=== PATIENT | female | born 1950 | race Caucasian/White ===

== ENCOUNTER 2016-06-26 15:49 | Outpatient (CLI) | END 2016-06-26 15:50 | disposition home or self-care (01) ==

== ENCOUNTER 2016-10-01 09:06 | Outpatient (CLI) | payer OTHER | END 2016-10-01 09:07 | disposition home or self-care (01) | DX: R73.9 Hyperglycemia, unspecified (principal) ==

== ENCOUNTER 2017-02-06 07:30 | Outpatient (CLI) | payer MEDICARE, OTHER ==
--- NOTE | 2017-02-06 11:17 | Ultrasound Report ---
COMPLETE ABDOMINAL ULTRASOUND: 02/06/2017 CLINICAL INDICATION: Pain. COMPARISON: 05/05/2010 TECHNIQUE: Real-time scanning was performed with floor representative static images obtained. FINDINGS: The liver measures 17.2 cm. Hepatic echogenicity is diffusely increased, compatible with fatty infiltration. Two cysts are noted, the larger measuring 2.9 cm, and the smaller measuring 1.8 cm. The common bile duct measures 10 mm. Cholelithiasis is noted. No gallbladder wall thickening o r pericholecystic fluid is seen. The visualized pancreas is unremarkable. The kidneys are normal, w ith the right measuring 10.8 cm, and the left measuring 11.5 cm. The spleen measures 11.1 cm, and de monstrates normal echotexture. The abdominal aorta is normal in caliber throughout. The inferior ve na cava is unremarkable. No free fluid is present. IMPRESSION: 1. CHOLELITHIASIS, WITHOUT EVIDENCE OF ACUTE CHOLECYSTITIS. 2. BILIARY DILATATION, WITH THE COMMON BILE DUCT MEASURING 10 MM. CONSIDER FURTHER EVALUATION WITH MRCP. 3. FATTY INFILTRATION OF THE LIVER, WITH TWO CYSTS IDENTIFIED. NO SOLID HEPATIC MASS IS SEEN. JOB #: [id number] EXT JOB #:[id number]
== END 2017-02-06 07:31 | disposition home or self-care (01) ==
LOC: DI 07:30
PROVIDERS: ATTEND Family Medicine
DX: K80.20 Calculus of gallbladder without cholecystitis without obstruction (principal); K83.8 Other specified diseases of biliary tract; K76.0 Fatty (change of) liver, not elsewhere classified; K76.89 Other specified diseases of liver
CPT/HCPCS: 76700

== ENCOUNTER 2017-02-12 12:22 | Outpatient (CLI) | payer MEDICARE ==
--- NOTE | 2017-02-12 15:11 | MRI Report ---
EXAM: MR ABDOMEN WITHOUT CONTRAST (MR CHOLANGIOPANCREATOGRAPHY) EXAM DATE: 02/12/2017 01:57 p.m. CLINICAL HISTORY: Abdominal pain, cholelithiasis, biliary dilation on CT. Right upper quadrant pain f or 2 months. Diffuse abdominal pain varies with diet. COMPARISON: Ultrasound from 02/06/2017. Abdominal radiograph from 05/05/2010. TECHNIQUE: Multiplanar breath-hold T1 and T2 sequences obtained through the abdomen on an MR scanner. Dedicated 2D and 3D MRCP sequences obtained through the biliary and pancreatic ducts. No intravenous contrast given. FINDINGS: Lung Bases: Lung bases are clear. Heart is enlarged. Small hiatal hernia. Liver: Decrease in signal intensity in the liver between the in and emq-xo-jcdeo images best seen on the olz-la-satja images consistent with fatty replacement. Low T1 and high T2 signal lesion is seen i n segment IVb measuring 2.8 x 2.4 cm and in segment 7/6 measuring 2.0 x 1.7 cm findings which favor c ysts. No other hepatic lesions. Mild prominence of the central intrahepatic bile ducts. CBD: The extrahepatic bile duct is prominent measuring in its midportion 9-10 mm, and inferiorly miihr uring 8-9 mm which tapers at the ampulla and may be slightly narrowed. No filling defect is identifie d. Gallbladder: There is a gallstone within the gallbladder which measures 15 mm. No gallbladder wall th ickening. Cholecystic edema. Pancreas: Pancreas is mildly atrophic with slight fatty replacement. The pancreatic duct measures 2.5 -3 mm in diameter by the pancreatic neck and body although the lower pancreatic duct near the conflue nce measures 3.5-4 mm. Spleen: The spleen appears normal. Kidneys and Adrenals: The kidneys appear normal with no mass or hydronephrosis. There are no cysts in the kidneys. The adrenals appear normal. Bowel: Stomach is mildly distended. Included portions of the small bowel are unremarkable. Are seen i n the colon. No diverticuli are seen in the colon. No diverticulitis. No enlarged mesenteric lymph no kirsten. Retroperitoneum: Abdominal aorta and IVC are of normal caliber. No aneurysm. No retroperitoneal jayla opathy. Mild degenerative changes in the lower thoracic and lumbar spine. IMPRESSION: 1. Mildly prominent common bile duct for patient's age. No MRI evidence of choledocholithiasis. Taper ing of the lower common bile duct near the ampulla with mild narrowing suggested at the confluence wi th the ampulla. Slight dilatation of the pancreatic duct adjacent to the confluence with the ampulla and common bile duct. Otherwise no other significant pancreatic ductal dilatation. Remainder of the p ancreatic duct is normal in caliber. 2. Cholelithiasis. 3. Diffuse fatty liver. Hepatic cysts. 4. Colonic diverticulosis. No diverticulitis. 5. Small hiatal hernia. [facility] Referring Provider Line: [phone] SITE ID: [id number]
== END 2017-02-12 12:23 | disposition home or self-care (01) ==
LOC: DI 12:22
PROVIDERS: ATTEND Family Medicine
DX: R10.9 Unspecified abdominal pain (principal); K80.20 Calculus of gallbladder without cholecystitis without obstruction; K83.8 Other specified diseases of biliary tract; K76.0 Fatty (change of) liver, not elsewhere classified; K76.89 Other specified diseases of liver; K57.30 Diverticulosis of large intestine without perforation or abscess without bleeding; K44.9 Diaphragmatic hernia without obstruction or gangrene
CPT/HCPCS: 74181

== ENCOUNTER 2017-02-25 10:10 | Outpatient (CLI) | payer MEDICARE ==
[2017-02-25 10:32] LABS: BASOPHILS % (AUTO) 0.4 %; EOSINOPHILS # (AUTO) 0.1 10^3/uL (0.0-0.7); EOSINOPHILS % (AUTO) 1.2 %; HCT - HEMATOCRIT 44.1 % (37.0-47.0); LYMPHOCYTES # (AUTO) 1.8 10^3/uL (1.5-3.5); LYMPHOCYTES % (AUTO) 22.8 %; MEAN CORPUSCULAR HEMOGLOBIN 30.9 pg (27.0-31.0); MEAN CORPUSCULAR HGB CONC 33.9 g/dL (32.0-36.0); MEAN CORPUSCULAR VOLUME 91.3 fL (81.0-99.0); MEAN PLATELET VOLUME 7.3 fL (7.9-10.8); MONOCYTES # (AUTO) 0.4 10^3/uL (0.0-1.0); MONOCYTES % (AUTO) 5.3 %; NEUTROPHILS # (AUTO) 5.5 10^3/uL (1.5-6.6); NEUTROPHILS % (AUTO) 70.3 %; RED BLOOD COUNT 4.83 10^6/uL (4.20-5.40); RED CELL DISTRIBUTION WIDTH 13.1 % (12.0-15.0); UNCORRECTED WHITE BLOOD COUNT 7.8 x10^3/uL; WHITE BLOOD COUNT 7.8 x10^3/uL (4.8-10.8)
[2017-02-25 11:09] LABS: BILIRUBIN,TOTAL 0.6 mg/dL (0.2-1.0); BUN - BLOOD UREA NITROGEN 11 mg/dL (6-20); CALCIUM 9.5 mg/dL (8.5-10.3); CARBON DIOXIDE - CO2 30 mmol/L (21-32); CHLORIDE 102 mmol/L (101-111); GFR - MDRD 56 (>89); GLUCOSE 119 mg/dL (70-100); LIPASE 30 U/L (22-51); POTASSIUM 4.1 mmol/L (3.5-5.0); SODIUM 140 mmol/L (135-145); TOTAL PROTEIN 7.1 g/dL (6.7-8.2)
[2017-02-25 11:10] LABS: BILIRUBIN,DIRECT < 0.1 mg/dL (0.1-0.5)
[2017-02-25] MEDS ORDERED: SINCALIDE 1.7 MCG in SODIUM CHLORIDE 0.9% 50 ML IV ONE (12:00)
--- NOTE | 2017-02-25 15:59 | Nuclear Medicine Report ---
EXAM: HEPATOBILIARY SCAN WITH CCK/KINEVAC ADMINISTRATION EXAM DATE: 02/25/2017 11:24 AM. CLINICAL HISTORY: Cholelithiasis. Question of cholecystitis. COMPARISON: Prior ultrasound and MRCP. TECHNIQUE: Following the intravenous administration of 5.3 mCi of Tc99m Mebrofenin, a hepatobiliary s can was done centered on the liver and gallbladder in multiple sequential images and projections. Following the intravenous administration of 1.3 mcg of CCK/ Kinevac over the course of approximately 60 minutes, dynamic imaging was done and the gallbladder ejection fraction was calculated. FINDINGS: Normal extraction of tracer from the blood pool indicating normal hepatocellular function. The liver size and shape is grossly within normal limits. Appearance of tracer in the biliary tree as early as 10 minutes, within normal limits. Appearance of tracer in the gallbladder as early as 15 minutes, within normal limits, with good progr ession of filling throughout the remainder of the initial hour. Appearance of tracer in the small bowel as early as 20 minutes, within normal limits. With CCK administration, the gallbladder demonstrates an effective contraction. The gallbladder eject ion fraction is calculated to be 29%, well below the lower limit of normal of 38% for a 60-minute inj ection. Patient experienced mild discomfort in the abdomen 8 minutes into the CCK infusion. IMPRESSION: 1. Patent cystic duct. 2. Patent common bile duct. 3. Gallbladder ejection fraction 29%. The findings suggest chronic cholecystitis. [facility] Referring Provider Line: [phone] SITE ID: [id number]
== END 2017-02-25 10:11 | disposition home or self-care (01) ==
LOC: DI 10:10
PROVIDERS: ATTEND Surgery
DX: K80.20 Calculus of gallbladder without cholecystitis without obstruction (principal)
CPT/HCPCS: 36415; 78227; 80048; 80076; 83690; 85025; A9537; J7040

== ENCOUNTER 2017-02-28 14:03 | Day surgery (SDC) | payer MEDICARE, OTHER ==
[2017-02-28] MEDS ORDERED: ONDANSETRON 4 MG/2 ML VIAL IVP STA (14:33)
[2017-02-28] MEDS ORDERED: HYDROmorphone 1 MG/ML CARPUJECT IVP STA ×2 (14:33→17:47)
--- NOTE | 2017-02-28 14:37 | ED Physician Documentation ---
PD HPI ABD PAIN - Stated complaint Stated Complaint: ABD PX - Chief complaint Chief Complaint: Abd Pain - History obtained from History obtained from: Patient, Family - History of Present Illness Timing - onset: Other (Recent diagnosis of gallstones, she had a dilated common bile duct on ultrasound and this was followed by an MRCP and then a HIDA scan showing chronic cholecystitis. The gallstone pain was far right lateral, over the last 3 days she has had progressive and severe epigastric pain that is nonradiating. She had a normal bowel movement this morning. Only abdominal surgery and her past was a vaginal hysterectomy.) Review of Systems Ten Systems: 10 systems reviewed and negative Constitutional: denies: Fever, Chills Throat: denies: Dental pain / toothache, Sore throat Cardiac: denies: Chest pain / pressure, Palpitations, Pedal edema, Calf pain Respiratory: denies: Dyspnea, Cough, Hemoptysis, Wheezing PD PAST MEDICAL HISTORY - Past Medical History Past Medical History: Yes Cardiovascular: Hypertension, High cholesterol Respiratory: None Endocrine/Autoimmune: None GI: None : None HEENT: None Psych: Depression, Anxiety, Claustrophobia Musculoskeletal: Osteoarthritis Derm: None - Past Surgical History General: Colonoscopy, EGD /[employer]ES [employer]PRESENTATIVE: Hysterectomy, Oophrectomy - Present Medications Home Medications: Ambulatory Orders Medication Instructions Recorded Confirmed Amitriptyline [Elavil] 10 mg ORAL DAILY 04/03/14 04/03/14 Amlodipine/Valsartan/Hcthiazid 10 mg ORAL DAILY 04/03/14 04/03/14 [Exforge Hct 10-160-12.5 mg Tab] FLUoxetine [PROzac] 20 mg ORAL DAILY 04/03/14 04/03/14 Losartan [Cozaar] 100 mg ORAL DAILY 04/03/14 04/03/14 - Allergies Allergies/Adverse Reactions: Allergies Allergy/AdvReac Type Severity Reaction Status Date / Time No Known Drug Allergies Allergy Verified 02/28/17 14:13 - Social History Does the pt smoke?: No Smoking Status: Never smoker - Family History Family history: reports: Non contributory PD ED PE NORMAL - Vitals Vital signs reviewed: Yes - General General: Alert and oriented X 3, Other (Tearful, in pain) - HEENT HEENT: PERRL, EOMI - Neck Neck: Supple, no meningeal sign, No bony TTP - Cardiac Cardiac: RRR, No murmur - Respiratory Respiratory: No respiratory distress, Clear bilaterally - Abdomen Abdomen: Other (Normal bowel sounds, mild epigastric tenderness, no guarding or rebound.) - Back Back: No CVA TTP, No spinal TTP - Derm Derm: Normal color, Warm and dry - Extremities Extremities: No edema, No calf tenderness / cord - Neuro Neuro: Alert and oriented X 3, Normal speech - Psych Psych: Normal mood, Normal affect Results - Vitals Vitals: Vital Signs - 24 hr 02/28/17 02/28/17 14:11 15:44 Temperature 36.7 C Heart Rate 93 73 Respiratory 16 18 Rate Blood Pressure 124/78 138/68 H O2 Saturation 100 97 Oxygen O2 Source Room air - EKG (time done) 1443 Rate: Rate (enter#) (93) Rhythm: NSR [place]: Normal Intervals: Normal LA QRS: Normal Ischemia: Other (mild inferior flat twaves). No: ST elevation c/w ischemia Computer interpretation: Agree with computer - Labs Labs: Laboratory Tests 02/28/17 02/28/17 02/28/17 14:27 14:43 14:43 WBC 7.8 RBC 4.87 Hgb 15.1 Hct 44.4 MCV 91.1 MCH 30.9 MCHC 33.9 RDW 13.0 Plt Count 222 MPV 7.2 L Neut # 5.3 Lymph # 1.8 [place] # 0.6 Eos # 0.1 Baso # 0.0 Absolute Nucleated RBC 0.00 Nucleated RBCs 0.0 Sodium 141 Potassium 3.9 Chloride 101 Carbon Dioxide 30 Anion Gap 10.0 BUN 10 Creatinine 1.0 Estimated GFR (MDRD) 56 L Glucose 102 H Calcium 9.7 Total Bilirubin 0.4 AST 22 ALT 20 Alkaline Phosphatase 87 Troponin I Total Protein 7.9 Albumin 4.6 Globulin 3.3 Albumin/Globulin Ratio 1.4 Lipase 28 Urine Color LIGHT YELLOW Urine Clarity CLEAR Urine pH 7.0 Ur Specific Fenton <=1.005 Urine Protein NEGATIVE Urine Glucose (UA) NEGATIVE Urine Ketones NEGATIVE Urine Occult Blood NEGATIVE Urine Nitrite NEGATIVE Urine Bilirubin NEGATIVE Urine Urobilinogen 0.2 (NORMAL) Ur Leukocyte Esterase NEGATIVE Ur Microscopic Review NOT INDICATED Urine Culture Comments NOT INDICATED 02/28/17 14:43 WBC RBC Hgb Hct MCV MCH MCHC RDW Plt Count MPV Neut # Lymph # [place] # Eos # Baso # Absolute Nucleated RBC Nucleated RBCs Sodium Potassium Chloride Carbon Dioxide Anion Gap BUN Creatinine Estimated GFR (MDRD) Glucose Calcium Total Bilirubin AST ALT Alkaline Phosphatase Troponin I < 0.04 Total Protein Albumin Globulin Albumin/Globulin Ratio Lipase Urine Color Urine Clarity Urine pH Ur Specific Fenton Urine Protein Urine Glucose (UA) Urine Ketones Urine Occult Blood Urine Nitrite Urine Bilirubin Urine Urobilinogen Ur Leukocyte Esterase Ur Microscopic Review Urine Culture Comments - Rads (name of study) CT A/P Radiology: EMP read contemporaneously (Diverticulosis without diverticulitis, small hiatal hernia, common ductal dilatation, similar to MRCP from last month.) PD MEDICAL DECISION MAKING - ED course ED course: 66-year-old woman presents with epigastric pain, likely biliary in origin given her recent history and imaging. Pain was controlled by single dose of Dilaudid , EKG/troponin negative. She was eager to get her gallbladder out and I spoke with Dr. Quinonez who is in the OR at 4:30 PM and he will be down after his case. Departure - Departure Disposition: ED Transfer to [facility] Clinical Impression: Cholecystitis Condition: Stable
[2017-02-28 14:38] LABS: BILIRUBIN,URINE NEGATIVE (NEGATIVE)
[2017-02-28 14:40] LABS: UA CHARGE (STRIP ONLY) YES; UR CULTURE IF IND NOT INDICATED
[2017-02-28 14:50] LABS: BASOPHILS % (AUTO) 0.4 %; EOSINOPHILS # (AUTO) 0.1 10^3/uL (0.0-0.7); EOSINOPHILS % (AUTO) 1.7 %; HCT - HEMATOCRIT 44.4 % (37.0-47.0); HGB - HEMOGLOBIN 15.1 g/dL (12.0-16.0); LYMPHOCYTES # (AUTO) 1.8 10^3/uL (1.5-3.5); LYMPHOCYTES % (AUTO) 23.4 %; MEAN CORPUSCULAR HEMOGLOBIN 30.9 pg (27.0-31.0); MEAN CORPUSCULAR HGB CONC 33.9 g/dL (32.0-36.0); MEAN CORPUSCULAR VOLUME 91.1 fL (81.0-99.0); MEAN PLATELET VOLUME 7.2 fL (7.9-10.8); MONOCYTES # (AUTO) 0.6 10^3/uL (0.0-1.0); MONOCYTES % (AUTO) 7.1 %; NEUTROPHILS # (AUTO) 5.3 10^3/uL (1.5-6.6); NEUTROPHILS % (AUTO) 67.4 %; RED BLOOD COUNT 4.87 10^6/uL (4.20-5.40); UNCORRECTED WHITE BLOOD COUNT 7.8 x10^3/uL; WHITE BLOOD COUNT 7.8 x10^3/uL (4.8-10.8)
[2017-02-28] MEDS ORDERED: HYDROmorphone 1 MG/ML CARPUJECT ONE ×2 (14:52→18:01)
[2017-02-28] MEDS ORDERED: ONDANSETRON 4 MG/2 ML VIAL ONE (14:52)
[2017-02-28 15:02] LABS: ALBUMIN/GLOBULIN RATIO 1.4 (1.0-2.2); BILIRUBIN,TOTAL 0.4 mg/dL (0.2-1.0); CALCIUM 9.7 mg/dL (8.5-10.3); POTASSIUM 3.9 mmol/L (3.5-5.0); TOTAL PROTEIN 7.9 g/dL (6.7-8.2)
[2017-02-28] MEDS ORDERED: IOPAMIDOL-300 100 ML VIAL IVP ONE (15:37)
--- NOTE | 2017-02-28 16:08 | CT Preliminary Report ---
Exam: CT Abdomen/Pelvis W/ IMPRESSION: 1. Colonic diverticulosis without annalee diverticulitis. 2. Small hiatal hernia. 3. Mild dilatation of the common duct as well as mild prominence of the distal pancreatic duct althou gh similar to the MRCP from last month. [facility] SITE ID: [id number]
--- NOTE | 2017-02-28 16:11 | CT Report ---
EXAM: CT ABDOMEN AND PELVIS EXAM DATE: 02/28/2017 03:38 PM. CLINICAL HISTORY: Upper abdominal pain COMPARISONS: MRCP 02/12/2017. TECHNIQUE: Routine helical CT imaging was performed through the abdomen and pelvis. IV contrast: 100 cc Isovue-300. Enteric contrast: No. Reconstructions: Coronal and sagittal. In accordance with CT protocol optimization, one or more of the following dose reduction techniques w ere utilized for this exam: automated exposure control, adjustment of mA and/or KV based on patient s ize, or use of iterative reconstructive technique. FINDINGS: Lung Bases: Trace pericardial fluid. Minimal basilar diskoid atelectasis. Small hiatal hernia. Liver: Normal in contour with hepatic cysts, largest measuring 2.2 cm. Gallbladder/Bile Ducts: Gallbladder is unremarkable. Mild extrahepatic biliary dilatation redemonstra meena without discrete lesion. Spleen: Normal. Pancreas: Borderline prominence distal pancreatic duct without discrete pancreatic lesion. Adrenal Glands: Normal. Kidneys: Normal. No masses or hydronephrosis. Peritoneal Cavity/Bowel: There is a small hiatal hernia. Remainder of the stomach is unremarkable. No dilated loops of large or small intestine. Moderate colonic diverticular disease without focal infla mmation. Appendix unremarkable. Pelvic Organs: Bladder is unremarkable. Patient status post hysterectomy. Vasculature: Atherosclerosis without abdominal aortic aneurysm. Bones: Old compression fracture L2. Other: None. IMPRESSION: 1. Colonic diverticulosis without annalee diverticulitis. 2. Small hiatal hernia. 3. Mild dilatation of the common duct as well as mild prominence of the distal pancreatic duct althou gh similar to the MRCP from last month. [facility] Referring Provider Line: [phone] SITE ID: [id number]
[2017-02-28] MEDS ORDERED: AMPICILLIN/SULBACTAM 3 GM in SODIUM CHLORIDE 0.9% MINIBAG 100 ML IV STA (16:29)
[2017-02-28 17:47] VITALS: BP 133/73
[2017-02-28] MEDS ORDERED: LACTATED RINGERS 1,000 ML IV ONE ×2 (19:38→20:33)
[2017-02-28] MEDS ORDERED: BUPIVACAINE 0.5% PF 30 ML VIAL SUBQ ONE ×2 (20:03→20:31)
[2017-02-28] MEDS ORDERED: ONDANSETRON 4 MG/2 ML VIAL IVP ONE (20:25)
[2017-02-28] MEDS ORDERED: SUCCINYLCHOLINE 200 MG/10 ML VIAL IVP ONE (20:25)
[2017-02-28] MEDS ORDERED: ACETAMINOPHEN 1,000 MG/100 ML 100 ML IV ONE (20:25)
[2017-02-28] MEDS ORDERED: LIDOCAINE-MPF 2% 5 ML VIAL IM ONE (20:25)
[2017-02-28] MEDS ORDERED: ceFAZolin 1 GM VIAL IV ONE (20:25)
[2017-02-28] MEDS ORDERED: MIDAZOLAM 2 MG/2 ML VIAL IVP ONE (20:25)
[2017-02-28] MEDS ORDERED: PROPOFOL 200 MG/20 ML VIAL IVP ONE (20:25)
[2017-02-28] MEDS ORDERED: fentaNYL 100 MCG/2 ML VIAL IVP ONE (20:25)
[2017-02-28] MEDS ORDERED: GLYCOPYRROLATE 1 MG/5 ML VIAL IVP ONE (20:25)
[2017-02-28] MEDS ORDERED: ePHEDrine 50 MG/ML VIAL IVP ONE (20:25)
[2017-02-28] MEDS ORDERED: NEOSTIGMINE 1 MG/1 ML 10 ML MDV IVP ONE (20:25)
[2017-02-28] MEDS ORDERED: DEXAMETHASONE 4 MG/ML VIAL IVP ONE (20:25)
--- NOTE | 2017-02-28 21:18 | OPERATIVE REPORT ---
Operative Report - General Procedure Date: 02/28/17 Planned Procedure: Laparoscopic cholecystectomy, possible IOC, possible common bile duct explo Pre-Op Diagnosis: Acalculus cholecystitis Procedure Performed: Laparoscopic cholecystectomy Post Op Diagnosis: Same - Procedure Note Primary Surgeon: Donavan Quinonez MD Anesthesia Provider: Justin Oconnell Anesthesia Technique: General ET tube, Local (30 mL 1/2% Marcaine) IV Fluids (mL): 1,300 Estimated Blood Loss (mL): 5 Complications: None. - Other Other Information/Narrative: OPERATIVE DESCRIPTION/REPORT: After verbal and written informed consent was obtained detailing the risks of infection, bleeding with all of its risks including transfusion, common bile duct injury, and the patient was brought to the operative suite and placed in the supine position on the operating room table. Monitoring devices were applied along with TEDs and pneumatic compressive stockings. Care was taken to avoid pressure points. Prophylactic antibiotics were given. An adequate level of general endotracheal anesthesia was established by Justin Oconnell. The abdomen was then prepped with ChloraPrep and draped in a sterile fashion. A "time in" then confirmed that the patient was identified with 3 identifiers (name, birthdate and medical record number), the history and physical was in the chart, the signed consent confirming the procedure was in the chart, the patient was in the correct position, the aforementioned prophylactic measures were in place or given, we had the correct personnel and equipment to complete the procedure and that anesthesia, surgery and nursing were given an opportunity to express any concerns. The initial incision was at the umbilicus and dissection to the linea alba was completed using blunt dissection. The linea alba was grasped with a Misty and incised. In a similar manner the peritoneum was grasped and incised using Metzenbaum scissors. In this location, a 12 mm blunt tipped, balloon tipped port was placed and the balloon was inflated to keep the port in position. The abdominal cavity was insufflated with carbon dioxide to steady-state pressure of 15 mmHg. Three additional 5 mm ports were placed in standard location for laparoscopic cholecystectomy (subxiphoid and 2 right subcostal) under direct vision of the 30 degree laparoscope and without incident. The patient was then placed in reverse Trendelenburg position and was rotated slightly to their left. The gallbladder fundus was grasped with an atraumatic grasper. Multiple adhesions had to be taken down by blunt and sharp dissection along with electrocautery. Eventually, we identified the infundibulum, and this was then grasped and retracted inferior and laterally. Dissection was then begun in the angle of Calot. The cystic duct and (slightly medially and posteriorly) cystic artery were clearly identified. The critical view was obtained. Two clips proximally and one clip distally were used to control both the cystic duct and cystic artery. The clips were carefully placed to avoid occluding the juncture with the common bile duct. Both the cystic duct and then the cystic artery were then transected with laparoscopic jose angel. The gallbladder was then removed from its fossa in a retrograde fashion using electrocautery. With the 30 degree 5 mm scope in the subxiphoid position, the gallbladder was placed in an EndoCatch bag to be extracted through the 12 mm port site. I irrigated the right upper quadrant with a liter of warm sterile saline, and the area was aspirated dry. I inspected the gallbladder fossa and there was no bleeding or bile leak. Clips on the cystic duct and cystic artery appeared to be secure. I briefly visually explored the abdomen. There was no other evidence of overt pathology. I injected the port sites at the peritoneal, fascial, and skin levels under direct vision with 0.5% Marcaine. All ports and the EndoCatch containing the gallbladder were removed. Following gallbladder removal, the remaining carbon dioxide was expelled from the abdomen. The fascia at the umbilicus was re-approximated using 2 [id number] 0 Vicryl sutures. The skin at each port site was approximated using a subcuticular 4-0 Monocryl. The surgical count of instruments, needles and sponges was reported as correct twice. Mastisol, Steri-Strips and sterile surgical dressings were applied. The patient was then awakened from anesthesia , extubated, and having tolerated the procedure well, was transported to the recovery room. No complications were encountered. A "time out" confirmed the operation performed, the fluids given, the estimated blood loss and anesthesia, surgery and nursing were given an opportunity to express any concerns.
--- NOTE | 2017-02-28 22:06 | HISTORY & PHYSICAL EXAMINATION ---
DATE OF ADMISSION: 02/28/2017 REQUESTING PROVIDER: Carl Smith MD. I am called on consultation by Dr. Carl Smith to evaluate this very pleasant 66-year-old female for acalculous cholecystitis. The patient was scheduled to see Dr. Mcelroy and had seen Dr. Mcelroy and was in the process of a w orkup for her acalculous cholecystitis, including an MRCP and HIDA scan showing chronic cholecystitis . The pain has been persistent over weeks and even months, and it is located in the right upper quadr ant following eating. Today, it got to the point where she could no longer take it and came to the em ergency department. There is no significant contribution to nausea and vomiting or constipation or di arrhea. There is no hematemesis, melena or hematochezia. ALLERGIES: NONE. MEDICATIONS 1. Elavil 10 mg orally daily. 2. Exforge HCT 10/160/12.5 mg tablet 10 mg daily. 3. Prozac 20 mg daily. 4. Losartan 100 mg p.o. daily. SOCIAL HISTORY: Tobacco, none. Recreational drug use, none. PAST MEDICAL AND SURGICAL HISTORY 1. Hypertension. 2. Dyslipidemia. 3. Depression. 4. Anxiety. 5. Claustrophobia. 6. Osteoarthritis. 7. Colonoscopy (performed by me). 8. EGD. 9. Hysterectomy, oophorectomy. REVIEW OF SYSTEMS CONSTITUTIONAL: She denies fever or chills. She has had weight loss with the diet she has been eating to avoid abdominal pain. (She has been eating fruits and oatmeal and has lost, I believe, 7 to 11 po unds.) HEENT: She denies any decrease in her hearing or vision. NECK: She denies any difficulty swallowing or speaking. CHEST: She denies any shortness of breath or productive cough. CARDIAC: She denies any chest pain or pressure. ABDOMEN: Please see above. : She denies dysuria. EXTREMITIES: Positive for some osteoarthritis. PSYCHIATRIC: Positive for some depression/anxiety, as well as some claustrophobia. PHYSICAL EXAMINATION GENERAL: This is a 66-year-old female, evaluated in room 5 at [facility]. She is evaluated with her in the room. She appears younger than her stated age . She is well-developed and well-nourished and is in no acute distress. Her mood and affect are appro priate. She asks and answers questions appropriately. VITAL SIGNS: Please refer to nurse's note. HEENT: She is normocephalic, atraumatic. Sclerae are noninjected, nonicteric. Mucous membranes are pi nk and slightly dry. NECK: Supple without mass or bruits. HEART: Regular rate and rhythm without rub, murmur or gallop. LUNGS: Clear to auscultation bilaterally anterolaterally. ABDOMEN: Slightly tender in the right upper quadrant. No peritoneal findings. Bowel sounds are normal . No palpable hepatosplenomegaly. No palpable umbilical hernia. : Deferred. RECTAL: Deferred. EXTREMITIES: No clubbing, cyanosis, or edema. GAIT: Not evaluated. PSYCHIATRIC: Again, her mood and affect appear appropriate. She asks and answers questions well. Ther e is no inappropriateness to her questions or her answers. NEUROLOGIC: She has no localizing or focused signs. The abdominopelvic CT read by Dr. Bailey is read as chronic diverticulosis without annalee diverticul itis, small hiatal hernia, mild dilatation of the common bile duct, as well as mild prominence of the distal pancreatic duct, although similar to the MRCP from last month. LABORATORY VALUES: Abnormalities on her chemistry include a GFR of 56 and a glucose of 102. On her he matology, the only abnormality is an MPV of 7.2. Her urinalysis is entirely normal. On a separate evaluation on February 25, 2017, the patient had a HIDA scan which revealed a patent cy stic duct, patent common bile duct, and a gallbladder ejection fraction of 29% with the findings sugg esting chronic cholecystitis. ASSESSMENT: A 66-year-old female with acute exacerbation of her chronic acalculous cholecystitis. PLAN: Laparoscopic cholecystectomy, possible open cholecystectomy, possible intraoperative cholangiog cristhian, possible common bile duct exploration. The indications, procedure, alternatives and possible c omplications, including but not limited to infection, bleeding with all of its risks, common bile pako t injury, and were fully explained to the patient. All questions were answered. Verbal and writ ten consent was obtained. The patient in preparation for this will be maintained n.p.o. and will rece nenita preoperative antibiotics for prophylaxis against surgical infection. In addition, she will have T EDs and Venodynes placed for prophylaxis against deep venous thrombosis. I have asked her to let us k now if there is any way we can make her stay here at [facility] more comfortable, to please let us know. Please note that this entire conversation was held in front of her , Karthikeyan duval. Approximately 45 minutes of [id number]-zk-[id number] time was spent with the patient with the majority of it in discussion, as well as in the generation of this document. JOB #: [id number] EXT JOB #:[id number]
[2017-03-01] MEDS ORDERED: ONDANSETRON 4 MG/2 ML VIAL IVP PRN (00:02)
[2017-03-01] MEDS ORDERED: HYDROcod/ACETAM 10 MG/325 MG TABLET PO PRN (00:02)
[2017-03-01] MEDS ORDERED: KETOROLAC 15 MG/ML VIAL IVP PRN (00:03)
[2017-03-01] MEDS ORDERED: HYDROmorphone 1 MG/ML CARPUJECT IVP PRN (00:04)
[2017-03-01] MEDS ORDERED: LACTATED RINGERS 1,000 ML IV SCH (04:00)
--- NOTE | 2017-03-01 13:11 | PROVIDER PROGRESS NOTE ---
Subjective - General Procedure Date: 02/28/17 Post Op Days: 1 - Review of Systems Wound/Incisions: positive: Healing well General: positive: No symptoms (Ever so mild nausea.) HEENT: positive: No symptoms Pulmonary: positive: No symptoms Cardiovascular: positive: No symptoms Gastrointestinal: positive: No symptoms, Nausea (Very mild.) Genitourinary: positive: No symptoms Musculoskeletal: positive: No symptoms Skin: positive: No symptoms Psychiatric: positive: No symptoms Objective - Patient Data Reviewed Vital Signs: Yes Weight: Weight 02/27/17 02/28/17 03/01/17 23:59 23:59 23:59 Weight (kg) 65.771 kg - Lab Results Lab Results: 02/28/17 14:43 02/28/17 14:43 Other Lab Results: Lab Results x24hrs 02/28/17 02/28/17 02/28/17 Range/Units 14:43 14:43 14:43 WBC 7.8 (4.8-10.8) x10^3/uL RBC 4.87 (4.20-5.40) 10^6/uL Hgb 15.1 (12.0-16.0) g/dL Hct 44.4 (37.0-47.0) % MCV 91.1 (81.0-99.0) fL MCH 30.9 (27.0-31.0) pg MCHC 33.9 (32.0-36.0) g/dL RDW 13.0 (12.0-15.0) % Plt Count 222 (130-450) 10^3/uL MPV 7.2 L (7.9-10.8) fL Neut # 5.3 (1.5-6.6) 10^3/uL Lymph # 1.8 (1.5-3.5) 10^3/uL [place] # 0.6 (0.0-1.0) 10^3/uL Eos # 0.1 (0.0-0.7) 10^3/uL Baso # 0.0 (0.0-0.1) 10^3/uL Absolute Nucleated RBC 0.00 x10^3/uL Nucleated RBCs 0.0 /100WBC Sodium 141 (135-145) mmol/L Potassium 3.9 (3.5-5.0) mmol/L Chloride 101 (101-111) mmol/L Carbon Dioxide 30 (21-32) mmol/L Anion Gap 10.0 (6-13) BUN 10 (6-20) mg/dL Creatinine 1.0 (0.4-1.0) mg/dL Estimated GFR (MDRD) 56 L (>89) Glucose 102 H (70-100) mg/dL Calcium 9.7 (8.5-10.3) mg/dL Total Bilirubin 0.4 (0.2-1.0) mg/dL AST 22 (10-42) IU/L ALT 20 (10-60) IU/L Alkaline Phosphatase 87 (42-121) IU/L Troponin I < 0.04 (<0.49) ng/mL Total Protein 7.9 (6.7-8.2) g/dL Albumin 4.6 (3.2-5.5) g/dL Globulin 3.3 (2.1-4.2) g/dL Albumin/Globulin Ratio 1.4 (1.0-2.2) Lipase 28 (22-51) U/L Urine Color Urine Clarity (CLEAR) Urine pH (5.0-7.5) PH Ur Specific [place] (1.002-1.030) Urine Protein (NEGATIVE) mg/dL Urine Glucose (UA) (NEGATIVE) mg/dL Urine Ketones (NEGATIVE) mg/dL Urine Occult Blood (NEGATIVE) Urine Nitrite (NEGATIVE) Urine Bilirubin (NEGATIVE) Urine Urobilinogen (NORMAL) E.U./dL Ur Leukocyte Esterase (NEGATIVE) Ur Microscopic Review Urine Culture Comments 02/28/17 Range/Units 14:27 WBC (4.8-10.8) x10^3/uL RBC (4.20-5.40) 10^6/uL Hgb (12.0-16.0) g/dL Hct (37.0-47.0) % MCV (81.0-99.0) fL MCH (27.0-31.0) pg MCHC (32.0-36.0) g/dL RDW (12.0-15.0) % Plt Count (130-450) 10^3/uL MPV (7.9-10.8) fL Neut # (1.5-6.6) 10^3/uL Lymph # (1.5-3.5) 10^3/uL [place] # (0.0-1.0) 10^3/uL Eos # (0.0-0.7) 10^3/uL Baso # (0.0-0.1) 10^3/uL Absolute Nucleated RBC x10^3/uL Nucleated RBCs /100WBC Sodium (135-145) mmol/L Potassium (3.5-5.0) mmol/L Chloride (101-111) mmol/L Carbon Dioxide (21-32) mmol/L Anion Gap (6-13) BUN (6-20) mg/dL Creatinine (0.4-1.0) mg/dL Estimated GFR (MDRD) (>89) Glucose (70-100) mg/dL Calcium (8.5-10.3) mg/dL Total Bilirubin (0.2-1.0) mg/dL AST (10-42) IU/L ALT (10-60) IU/L Alkaline Phosphatase (42-121) IU/L Troponin I (<0.49) ng/mL Total Protein (6.7-8.2) g/dL Albumin (3.2-5.5) g/dL Globulin (2.1-4.2) g/dL Albumin/Globulin Ratio (1.0-2.2) Lipase (22-51) U/L Urine Color LIGHT YELLOW Urine Clarity CLEAR (CLEAR) Urine pH 7.0 (5.0-7.5) PH Ur Specific [place] <=1.005 (1.002-1.030) Urine Protein NEGATIVE (NEGATIVE) mg/dL Urine Glucose (UA) NEGATIVE (NEGATIVE) mg/dL Urine Ketones NEGATIVE (NEGATIVE) mg/dL Urine Occult Blood NEGATIVE (NEGATIVE) Urine Nitrite NEGATIVE (NEGATIVE) Urine Bilirubin NEGATIVE (NEGATIVE) Urine Urobilinogen 0.2 (NORMAL) (NORMAL) E.U./dL Ur Leukocyte Esterase NEGATIVE (NEGATIVE) Ur Microscopic Review NOT INDICATED Urine Culture Comments NOT INDICATED - Current Medications Current Medications: Current Medications Generic Name Dose Route Start Last Admin Trade Name Freq PRN Reason Stop Dose Admin Acetaminophen/Hydrocodone Bitart 1 tab 03/01/17 00:02 03/01/17 00:27 [place] 10 Mg/325 Mg PO 1 tab Q4HR PRN Administration PAIN Lactated Ringer's 1,000 mls @ 100 mls/hr 03/01/17 04:00 03/01/17 03:24 Lr IV 100 mls/hr .Q10H DIGNA Administration Ondansetron HCl 4 mg 03/01/17 00:02 03/01/17 00:30 Zofran Inj IVP 4 mg Q6HR PRN Administration Nausea / Vomiting - Physical Exam Wound/Incisions: positive: Dressing dry and intact General Appearance: positive: No acute distress Eyes Bilateral: positive: No lid inflammation, Conjunctivae nml, No scleral icterus Neck: positive: Trachea midline Respiratory: positive: Chest non-tender, No respiratory distress, Breath sounds nml Cardiovascular: positive: Regular rate & rhythm Abdomen: positive: Non-tender Extremities: positive: Nml appearance Neurologic/Psychiatric: positive: Oriented x3 Impression/Plan - Problem List Problem List: D1 s/p laparoscopic cholecystectomy and now her pain is well controlled. Wrote for pain medication prescriptions and stool softeners. PAtient to follow up with me in 7-10 days. Call me with questions or concerns.
== END 2017-03-01 13:39 | disposition home or self-care (01) ==
LOC: ED 14:03 → SDS 19:00 → OBS 21:00 → SDS 22:01 → OBS 03-01 13:39
PROVIDERS: ATTEND Surgery
PROC: 0FT44ZZ Resection of Gallbladder, Percutaneous Endoscopic Approach (ICD-10-PCS; principal; 2017-02-28 19:03)
DX: K80.10 Calculus of gallbladder with chronic cholecystitis without obstruction (principal); I10 Essential (primary) hypertension; F32.9 Major depressive disorder, single episode, unspecified; F40.240 Claustrophobia; E78.5 Hyperlipidemia, unspecified; E03.9 Hypothyroidism, unspecified; Z90.710 Acquired absence of both cervix and uterus; Z87.891 Personal history of nicotine dependence
CPT/HCPCS: 36415; 47562; 74177; 80053; 81003; 83690; 84484; 85025; 88304; 93005; 96374; 96375; 96376; 99284; 99285; A9270; J0131; J1170; J7120; Q9967; 81001; 87086; 99283

== ENCOUNTER 2019-08-04 14:05 | Outpatient (CLI) | payer MEDICARE, BC ==
--- NOTE | 2019-08-09 11:01 | Mammography Report ---
Reason: SCREENING MAMMO Procedure Date: 08/04/2019 Accession Number: [id number] / [id number] Procedure: NELY - Screening Mammo w/Obie CPT Code: Final Report FULL RESULT: EXAM: Screening Mammo w/Obie DATE: 08/04/2019 2:33 PM CLINICAL HISTORY: Screening encounter. Family history of breast cancer in the mother at the age of 60. TECHNIQUE: (B) - Bilateral CC and MLO views were obtained. COMPARISON: 01/01/2016 through 04/26/2010. PARENCHYMAL PATTERN: (D) - The breast(s) demonstrate(s) heterogeneously dense fibroglandular parenchyma. FINDINGS: There are no suspicious masses, calcifications, or areas of distortion. IMPRESSION: Negative examination. BI-RADS category 1. RECOMMENDATION: (ANNUAL) - Recommend routine annual screening mammography. BI-RADS CATEGORY: (1) - Negative. STANDARD QUALIFYING STATEMENTS: 1. This examination was not reviewed with the aid of Computer-Aided Detection (CAD). 2. A negative or benign imaging report should not preclude biopsy if clinically suspicious findings are present. 3. Dense breasts may obscure an underlying neoplasm. 4. This examination was reviewed with the aid of 3D breast imaging (tomosynthesis).
== END 2019-08-04 14:06 | disposition home or self-care (01) ==
LOC: DI 14:05
DX: Z12.31 Encounter for screening mammogram for malignant neoplasm of breast (principal); Z80.3 Family history of malignant neoplasm of breast
CPT/HCPCS: 77063; 77067

== ENCOUNTER 2023-04-23 11:52 | Outpatient (CLI) | payer MEDICARE, BC | END 2023-04-23 23:59 | disposition EMS.NT | LOC: EMS 11:52 | DX: U07.1 COVID-19 (principal) ==

== ENCOUNTER 2023-10-21 09:58 | Outpatient (CLI) | payer MEDICARE, BC ==
--- NOTE | 2023-10-22 10:58 | Mammography Report ---
BILATERAL DIGITAL SCREENING MAMMOGRAM 3D/2D: 10/21/2023 CLINICAL: Routine screening. Comparison is made to exams dated: 08/04/2019 mammogram and 01/01/2016 mammogram - [facility]. Both breasts are heterogeneously dense, which may obscure small masses (category c / 51-75% glandular tissue). No significant masses, calcifications, or other findings are seen in either breast. There has been no significant interval change. IMPRESSION: NEGATIVE There is no mammographic evidence of malignancy. A 1 year screening mammogram is recommended. Based on the Tyrer Cuzick model (a risk assessment model) the patient's lifetime risk is 13.4% and he r 10 year risk is 9.3%. According to the ACR, ACS, and NCCN guidelines, an annual breast MRI exam elver ng with mammogram is recommended if the patient's lifetime risk is 20% or greater. This exam was interpreted at Station ID: [id number]. NOTE: For mammograms, a report in lay terms will be sent to the patient. Approximately 15% of breast malignancies will not be visualized mammographically. In the management of a palpable breast mass, a negative mammogram must not discourage biopsy of a clinically suspicious lesion. Electronically Signed By: Keri ding/james:10/21/2023 16:41:17 letter sent: No_Letter ACR BI-RADS Category 1: Negative 3341F PARENCHYMAL PATTERN: (D) - The breast(s) demonstrate(s) heterogeneously dense fibroglandular loki blackwell. BI-RADS CATEGORY: (1) - 1 RECOMMENDATION: (ANNUAL) - Recommend routine annual screening mammography. [id number] 1 year screening LATERALITY: (B)
== END 2023-10-21 09:59 | disposition home or self-care (01) ==
LOC: DI 09:58
DX: Z12.31 Encounter for screening mammogram for malignant neoplasm of breast (principal); R92.333 Mammographic heterogeneous density, bilateral breasts